=== PATIENT | female | born 1960 | race Asian ===

== ENCOUNTER 2021-01-12 18:55 | Emergency (ER) | payer OTHER ==
[~2021-01-12] VITALS: Ht 170.2 cm; Wt 84.4 kg
[2021-01-12 18:55] VITALS: BP 146/78; TEMP 98.3
[2021-01-12 19:51] LABS: PLATELET COUNT 119 K/uL (152-353)
[2021-01-12 19:58] LABS: POTASSIUM 3.9 mmol/L (3.6-5.2)
[2021-01-12] MEDS ORDERED: AMLODIPINE BESYLATE PO (22:57)
[2021-01-12] MEDS ORDERED: B-1100 MG PO (22:59)
[2021-01-12] MEDS ORDERED: DONE5TAB PO (23:09)
[2021-01-12] MEDS ORDERED: BENZTROPINE0.5 MG PO (23:10)
[2021-01-12] MEDS ORDERED: D325 MCG PO (23:12)
[2021-01-12] MEDS ORDERED: HALOPERIDOL2 MG PO (23:13)
[2021-01-12] MEDS ORDERED: LISI10TA11 PO (23:15)
[2021-01-12] MEDS ORDERED: MIRTAZAPINE7.5 MG PO (23:17)
[2021-01-12] MEDS ORDERED: MULTIVITAMI1 PO (23:18)
[2021-01-12] MEDS ORDERED: VITAMIN B650 MG PO (23:20)
[2021-01-12] MEDS ORDERED: HALO5TAB10 PO (23:22)
[2021-01-12] MEDS ORDERED: LEVE500T5 PO (23:23)
[2021-01-12] MEDS ORDERED: VALPROIC A250 MG/5 M PO (23:24)
[2021-01-12] MEDS ORDERED: MED PASS 2.0 PO (23:26)
[2021-01-12] MEDS ORDERED: NOVOLOG100 UNIT/M SC (23:30)
[2021-01-12] MEDS ORDERED: HYDROXYZINE HYD25 MG PO (23:33)
[2021-01-12] MEDS ORDERED: TYLENOL325 MG PO (23:34)
== END 2021-01-12 21:11 | disposition still patient (30) ==
LOC: ED 18:55
PROVIDERS: Emergency Medicine
DX: F25.8 Other schizoaffective disorders (principal); R45.1 Restlessness and agitation; F22 Delusional disorders; Z11.52 Encounter for screening for COVID-19; Z04.6 Encounter for general psychiatric examination, requested by authority; Z86.16 Personal history of COVID-19
CPT/HCPCS: 80053; 81000; 85027; 87635; 93005; 99283; U0003

== ENCOUNTER 2021-10-01 21:34 | Emergency (ER) | payer OTHER ==
[~2021-10-01] VITALS: Ht 170.2 cm; Wt 83.0 kg
[2021-10-01 21:34] VITALS: BP 183/95; TEMP 98.2
[~2021-10-01 21:34] MED LIST: AMLODIPINE BESYLATE PO; ARIPIPRAZOLE10 MG PO; B-1100 MG PO; BENZTROPINE0.5 MG PO; D325 MCG PO; DONE5TAB PO; DULO30CA PO; HALO5TAB10 PO; HALOPERIDOL2 MG PO; HYDROXYZINE HYD25 MG PO; LEVE500T5 PO; LISI10TA11 PO; MED PASS 2.0 PO; MIRTAZAPINE7.5 MG PO; MULTIVITAMI1 PO; NOVOLOG100 UNIT/M SC; OLANZAPINE5 M1 PO; TYLENOL325 MG PO; VALPROIC A250 MG/5 M PO; VALPROIC ACID10 ML PO; VITAMIN B650 MG PO
[2021-10-01 22:06] LABS: PLATELET COUNT 93 K/uL (152-353)
[2021-10-01 22:16] LABS: POTASSIUM 4.1 mmol/L (3.6-5.2)
[2021-10-02] MEDS ORDERED: APTIOM200 MG PO (14:58)
[2021-10-02] MEDS ORDERED: LEVO-T25 MCG PO (15:02)
[2021-10-02] MEDS ORDERED: MEDR2.5T19 PO (15:04)
[2021-10-02] MEDS ORDERED: VALPROIC A250 MG/5 M PO (15:06)
[2021-10-02] MEDS ORDERED: ONDANSETRON HYDR4 MG PO (15:12)
[2021-10-02] MEDS ORDERED: TORSEMIDE20 MG PO (15:13)
== END 2021-10-01 23:08 | disposition still patient (30) ==
LOC: ED 21:34
PROVIDERS: Emergency Medicine
DX: F01.50 Vascular dementia, unspecified severity, without behavioral disturbance, psychotic disturbance, mood disturbance, and anxiety (principal); R45.1 Restlessness and agitation; E11.9 Type 2 diabetes mellitus without complications; M32.8 Other forms of systemic lupus erythematosus; G40.802 Other epilepsy, not intractable, without status epilepticus; Z11.52 Encounter for screening for COVID-19; Z00.8 Encounter for other general examination
CPT/HCPCS: 36415; 80053; 81002; 81015; 85027; 87635; 93005; 99283; U0003